=== PATIENT | female | born 1935 ===

== ENCOUNTER 2022-05-06 17:14 | Emergency (ER) | payer MEDICARE ==
[~2022-05-06] VITALS: Ht 147.3 cm; Wt 83.0 kg
[2022-05-06 18:13] LABS: BASOPHILS ABSOLUTE AUTO 0.04 K/mm3 (0.00-0.23); BASOPHILS PERCENT AUTO 1 % (0-2); EOSINOPHILS ABSOLUTE AUTO 0.07 K/mm3 (0.00-0.68); EOSINOPHILS PERCENT AUTO 1 % (0-6); Hematocrit 42.4 % (33.0-51.0); Hemoglobin 13.6 g/dL (11.5-16.0); IMMATURE GRAN ABSOLUTE AUTO 0.02 K/mm3 (0.00-0.10); IMMATURE GRAN PERCENT AUTO 0 % (0-1); LYMPHOCYTES ABSOLUTE AUTO 1.55 K/mm3 (0.84-5.20); LYMPHOCYTES PERCENT AUTO 21 % (21-46); MONOCYTES ABSOLUTE AUTO 0.57 K/mm3 (0.16-1.47); MONOCYTES PERCENT AUTO 8 % (4-13); Mean Corpuscular HGB Conc 32.1 g/dL (31.5-36.5); Mean Corpuscular Volume 87 fL (80-100); NEUTROPHILS PERCENT AUTO 69 % (41-73); Platelet Count 248 K/mm3 (150-400); RDW Coefficient Variation 17.2 % (11.7-14.2); RDW Standard Deviation 55.5 fL (35.1-46.3); Red Blood Cell Count 4.86 M/mm3 (3.80-5.20); White Blood Cell Count 7.35 K/mm3 (4.00-11.30)
[2022-05-06 18:35] LABS: Albumin, Blood 3.6 g/dL (3.4-5.0); Bilirubin, Total 0.3 mg/dL (0.1-1.0); Bun/Creatinine Ratio 34.9 (12.0-20.0); Calcium, Blood 9.4 mg/dL (8.5-10.1); Creatinine, Blood 0.6 mg/dL (0.40-1.00); Globulin, Blood 3.6 g/dL (2.2-4.0); Total Protein, Blood 7.2 g/dL (6.4-8.2)
[2022-05-06] MEDS ORDERED: AMLOATOR (20:16)
[2022-05-06] MEDS ORDERED: ATOR20 PO (20:17)
[2022-05-06] MEDS ORDERED: Amlodipine Bes2.5 MG (20:19)
[2022-05-06] MEDS ORDERED: LOSA50 PO (20:19)
[2022-05-06] MEDS ORDERED: MELO7.5 PO (20:20)
[2022-05-06] MEDS ORDERED: METO50ER PO (20:21)
[2022-05-06] MEDS ORDERED: OMEP20ER PO (20:21)
[2022-05-06] MEDS ORDERED: OXYB5ER PO (20:22)
[2022-05-06] MEDS ORDERED: POTASSIUM GLUCO99 M1 PO (20:23)
[2022-05-06] MEDS ORDERED: MERIBIN5 MG PO (20:23)
[2022-05-06] MEDS ORDERED: CENTRUM SILVER1 EAC2 PO (20:24)
[2022-05-06] MEDS ORDERED: CALCIUM CIT 311 EAC7 PO (20:24)
[2022-05-06] MEDS ORDERED: MELATONIN5 M1 PO (20:25)
[2022-05-06] MEDS ORDERED: MAG6464 MG PO (20:25)
== END 2022-05-06 23:54 | disposition home or self-care (01) ==
LOC: ER 17:14
PROVIDERS: Physician Assistant
DX: R07.89 Other chest pain (principal); I10 Essential (primary) hypertension; E78.5 Hyperlipidemia, unspecified; Z79.899 Other long term (current) drug therapy; Z88.5 Allergy status to narcotic agent; Z88.2 Allergy status to sulfonamides
CPT/HCPCS: 71046; 80053; 83690; 83880; 84484; 85025; 93005; 93010